=== PATIENT | female | born 2000 | race Caucasian/White ===

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

== ENCOUNTER 2021-11-18 11:18 | Emergency (ER) | payer OTHER ==
[~2021-11-18] VITALS: Ht 170.2 cm; Wt 59.0 kg
[2021-11-18 11:32] VITALS: BP 117/69
--- NOTE | 2021-11-18 11:35 | NUR ---
pt in tent for covid precautions
[2021-11-18] MEDS ORDERED: IBUP-1842 PO (12:23)
[2021-11-18] MEDS ORDERED: PROM118S5 PO (12:23)
[2021-11-18 12:46] VITALS: BP 117/69
--- NOTE | 2021-11-18 12:46 | NUR ---
covid swab collected and given to lab
--- NOTE | 2021-11-18 12:47 | NUR ---
Patient discharged with v/s stable. Written and verbal after care instructions given and explained. Patient alert, oriented and verbalized understanding of instructions. Ambulatory with steady gait. All questions addressed prior to discharge. ID band removed. Patient advised to follow up with PMD. Rx of motrin and promethazine dm syrup given. Patient educated on indication of medication including possible reaction and side effects. Opportunity to ask questions provided and answered.
== END 2021-11-18 12:46 | disposition home or self-care (01) ==
LOC: MED 11:18
DX: U07.1 COVID-19 (principal); J45.909 Unspecified asthma, uncomplicated; Z79.899 Other long term (current) drug therapy; Z79.1 Long term (current) use of non-steroidal anti-inflammatories (NSAID)
CPT/HCPCS: 99283